=== PATIENT | male | born 1995 | race African-American/Black ===

== ENCOUNTER 2021-06-20 23:10 | Emergency (ER) | payer OTHER ==
[2021-06-20 23:14] VITALS: BP 140/77; PULSE 72; TEMP 98; BMI 27.2
== END 2021-06-21 03:36 | disposition home or self-care (01) ==
LOC: JER 23:10
DX: R07.9 Chest pain, unspecified (principal); V49.40XA Driver injured in collision with unspecified motor vehicles in traffic accident, initial encounter
CPT/HCPCS: 71046-TC-FY; 73130-TC-RT-FY; 73630-TC-LT; 93005; 93010; 99284-25